=== PATIENT | male | born 1955 | race Caucasian/White ===

== ENCOUNTER 2018-10-17 05:35 | Day surgery (SDC) | payer OTHER ==
[~2018-10-17] VITALS: Ht 177.8 cm; Wt 88.5 kg
--- NOTE | ~2018-10-17 | OR ---
[facility] [address] [place], [place] [address] Draft DATE OF OPERATION: 10/17/2018 SURGEON: Manuel Hilliard MD PREOPERATIVE DIAGNOSIS: Synovitis left hip. POSTOPERATIVE DIAGNOSIS: Synovitis left hip. PROCEDURE: Injection left hip under anesthesia and fluoroscopy. WHAT WAS DONE: The patient was taken to the operating room. He was gently sedated by the Anesthesia Service. The left groin area was then prepped and draped in a routine sterile fashion. We were able to localize the hip joint with the tip of the spinal needle. We then picked our entry point and re-prepped. We then raised a 1% xylocaine wheel. After raising the xylocaine wheel, the spinal needle was introduced anterolaterally. We then gently advanced under fluoroscopic control until we touched the outer capsule of the hip joint. We then penetrated it and felt it pop through the hip capsule. We were then able to inject 8 mL of 1% plain xylocaine and 2 mL of Depo-Medrol, which the patient tolerated well. The needle was withdrawn and a Band-Aid was applied. The patient was awakened, taken to recovery room where he arrived in stable condition. Counts were correct and antibiotic protocols were followed. Manuel Hilliard MD WFB/MODL /[id number] Copies: PATIENT NAME: REBECA THOMPSON OPERATIVE REPORT DATE OF : 57 REPORT #: [id number] PHYSICIAN: MANUEL HILLIARD MD PCP: BASHIR KAPLAN PA-C REPORT IS CONFIDENTIAL AND NOT TO BE RELEASED WITHOUT AUTHORIZATION [address] [address] Draft ~ PATIENT NAME: REBECA THOMPSON OPERATIVE REPORT DATE OF : 57 REPORT #: [id number] PHYSICIAN: MANUEL HILLIARD MD PCP: BASHIR KAPLAN PA-C REPORT IS CONFIDENTIAL AND NOT TO BE RELEASED WITHOUT AUTHORIZATION
[~2018-10-17 05:35] MED LIST: IBUPROFEN200 MG PO; PREDNISONE20 MG PO; TYLENOL EXTRA500 MG PO
[2018-10-17] MEDS ORDERED: MELOXICAM7.5 MG PO (05:56)
--- NOTE | 2018-10-17 07:31 | NUR ---
10/17/18 0731 Yennifer Aceves 0724- PT ARRIVES TO PACU ALERT. PT REPORTS NO PAIN OR NAUSEA. RESP EVEN AND UNLABORED. OXYGEN SAT HIGH 90'S ON RA.
== END 2018-10-17 07:54 | disposition home or self-care (01) ==
LOC: DS 05:35 → OPS 05:35 → DS 06:45 → OPS 07:45
PROVIDERS: Orthopaedic Surgery
PROC: 3E0U33Z Introduction of Anti-inflammatory into Joints, Percutaneous Approach (ICD-10-PCS; 2018-10-17)
PROC: BW1CZZZ Fluoroscopy of Lower Extremity (ICD-10-PCS; 2018-10-17)
PROC: 3E0U3BZ Introduction of Anesthetic Agent into Joints, Percutaneous Approach (ICD-10-PCS; principal; 2018-10-17 06:45)
DX: M65.852 Other synovitis and tenosynovitis, left thigh (principal); Z88.7 Allergy status to serum and vaccine; Z79.52 Long term (current) use of systemic steroids
CPT/HCPCS: 73501; J0690; J2250; J2704; J3010; J3301; J7120

== ENCOUNTER 2020-11-21 11:50 | Emergency (ER) | payer OTHER ==
[~2020-11-21] VITALS: Ht 177.8 cm; Wt 88.5 kg
[~2020-11-21 11:50] MED LIST changes: +MELOXICAM7.5 MG PO
== END 2020-11-21 13:22 | disposition home or self-care (01) ==
LOC: ED 11:50
DX: K21.9 Gastro-esophageal reflux disease without esophagitis (principal); Z88.7 Allergy status to serum and vaccine
CPT/HCPCS: 74018; 80053; 83690; 85025; 99284-25

== ENCOUNTER 2024-02-05 06:22 | Day surgery (SDC) | payer OTHER ==
[~2024-02-05] VITALS: Ht 172.7 cm; Wt 93.4 kg
[~2024-02-05 06:22] MED LIST changes: +MIDAZOLAM HCL 5 MG/5 ML VIAL IV PRN; +MIDAZOLAM HCL 5 MG/5 ML VIAL ONE; +MULTI VITAMIN1 EACH PO; +SIMVASTATIN20 MG PO; +fentaNYL citrate 100 MCG/2 ML VIAL IV PRN; +fentaNYL citrate 100 MCG/2 ML VIAL ONE
[2024-02-05 06:39] VITALS: BP 139/88
[2024-02-05] MEDS ORDERED: LACTATED RINGER'S 1,000 ML IV SCH (07:00)
[2024-02-05] MEDS ORDERED: IBLOOD GLUCOSE TEST STRIP 1 EA TEST VI PRN (07:00)
[2024-02-05] MEDS ORDERED: LIDOCAINE HCL 1% 5 ML SDV INJ ONE (07:00)
--- NOTE | 2024-02-05 07:29 | NUR ---
VISITED DURING SPIRITUAL CARE ROUNDS. PT ACCOMPANIED BY IN ROOM; STRONG RELATIONAL AND RONNA RESOURCES EXHIBITED. PROVIDED SUPPORTIVE PRESENCE, HOSPITALITY, PRAYER. PT AND EXPRESSED GRATITUDE.
--- NOTE | 2024-02-05 08:09 | NUR ---
02/05/24 0809 Elvia Rosas PT TO PACU SLEEPING RESPONDS TO VERBAL STIMULI.
[2024-02-05 08:46] VITALS: BP 106/64
--- NOTE | 2024-02-05 08:55 | OR ---
[facility] [address] [place], [place] [address] Signed DATE OF OPERATION: 02/05/2024 SURGEON: Víctor Cooper MD PREOPERATIVE DIAGNOSES: 1. Screening. 2. Unremarkable screening colonoscopy in 2013, at age 56. POSTOPERATIVE DIAGNOSES: 1. 4 mm polyps x2 at 6 cm in rectum. 2. Minimal proximal sigmoid diverticulosis. 3. Moderate internal hemorrhoids. PROCEDURE: Colonoscopy with hot biopsy. ESTIMATED BLOOD LOSS: None. INDICATIONS: Abelino is a 68-year-old gentleman, asked to see me for a followup colonoscopy. He underwent an unremarkable colonoscopy in 2012, at the age of 56. While living in [place], [place]. He said he has no lower GI complaints currently. There is no family history of colon cancer or polyps. I had given him a pamphlet on colonoscopy in the office. We had reviewed the nature of the test. There is risk including, but not limited to gas bloating, crampy abdominal pain, bleeding, perforation requiring surgery, and missed diagnosis. We also reviewed the written instructions for the bowel prep line by line. He also understands the need for IV conscious sedation. He had expressed understanding and wished to proceed. PROCEDURE NOTE: Abelino was taken into our endoscopy suite and placed in the left lateral decubitus position. He was given a total of 7 mg of Versed and 150 mcg of fentanyl. A digital rectal exam was performed. This was unremarkable. There were no external hemorrhoids. Good sphincter tone. We did not check his prostate gland. The adult colonoscope was introduced and advanced all the way around into the cecum under direct visualization of camera. It took just a little bit extra sedation and some abdominal compression in order to advance the scope into the cecum itself. His prep was good. He had a few areas of liquid stool, which was easily suctioned out. We could easily see the appendiceal orifice and ileocecal valve. The scope was then slowly withdrawn. He had Electronically Signed By: VÍCTOR COOPER MD 02/05/24 0855 PATIENT NAME: REBECA THOMPSON IZABELA OPERATIVE REPORT DATE OF : 57 REPORT #: [id number] PHYSICIAN: VÍCTOR COOPER MD PCP: ASHLEY LARA REPORT IS CONFIDENTIAL AND NOT TO BE RELEASED WITHOUT AUTHORIZATION [id number] [place], [place] [address] Signed just a few tiny diverticula in the proximal sigmoid colon. They were small in size, few in number and scattered about. Once in the rectum, he had two tiny polyps removed with hot biopsy forceps at about 6 cm. Upon retroflexion of scope, he does have moderate internal hemorrhoid columns. After this, the gas was suctioned out. Colonoscope removed. Abelino tolerated the procedure quite well. RECOMMENDATIONS: I will see Abelino back in my office in 7 to 14 days to review his results. MD MANUEL Hensley/MALNEAL /[id number] cc: MD Ashley Hensley FNP Copies: VÍCTOR COOPER MD ~ Electronically Signed By: VÍCTOR COOPER MD 02/05/24 0855 PATIENT NAME: REBECA THOMPSON IZABELA OPERATIVE REPORT DATE OF : 57 REPORT #: [id number] PHYSICIAN: VÍCTOR COOPER MD PCP: ASHLEY LARA REPORT IS CONFIDENTIAL AND NOT TO BE RELEASED WITHOUT AUTHORIZATION
== END 2024-02-05 08:55 | disposition home or self-care (01) ==
LOC: OPS 06:22 → DS 06:22 → OPS 07:30
PROVIDERS: ATTEND Colon & Rectal Surgery
PROC: 0DBP8ZZ Excision of Rectum, Via Natural or Artificial Opening Endoscopic (ICD-10-PCS; principal; 2024-02-05 07:30)
DX: Z12.11 Encounter for screening for malignant neoplasm of colon (principal); K62.1 Rectal polyp; K57.30 Diverticulosis of large intestine without perforation or abscess without bleeding; K64.8 Other hemorrhoids; Z88.7 Allergy status to serum and vaccine
CPT/HCPCS: 99153; G0500; J2250; J3010; J7121